=== PATIENT | male | born 1950 | race Caucasian/White ===

== ENCOUNTER 2017-07-29 20:47 | Emergency (ER) | payer MEDICARE, OTHER ==
[~2017-07-29] VITALS: Ht 172.7 cm; Wt 133.8 kg
--- NOTE | ~2017-07-29 | CR21 ---
[facility] A Service of [facility] & [facility] RADIOLOGY TEXT RESULTS PATIENT: ELICEO GOMEZ LOCATION: CFTX : 46 UNIT #: [id number] AGE: [address]: BRET ARRIAGA APRN SEX: M ORDER DR: [id number] [facility] [address] [place], [place] [address] [id number] MR#: [id number] Acc #: [id number] NAME: ELICEO GOMEZ : 1950 SEX: M STUDY DATE/TIME: 07/29/2017 23:54 UNIT: CFME ROOM: STUDY DESCRIPTION: CR Ankle Min 3 Views Rt Attending Physician: Bret Arriaga Aprn Ordering Physician: Bret Arriaga Aprn Primary Care Physician: Liya Ceja M.D. MEDICAL IMAGING REPORT This report is preliminary unless electronic signature is present EXAM Right ankle 07/29/2017 HISTORY 66-year-old male in the ED complaining of lateral right foot and ankle pain after injury. [place] a pop while walking about 2 days ago. TECHNIQUE Three-view right ankle series. FINDINGS No fracture, dislocation or other acute osseous abnormality is demonstrated. Surgical clips within the soft tissues of the visualized medial lower leg. IMPRESSION Negative left ankle series. No acute osseous abnormality. Dictated by... Denver Rinaldi M.D. THIS IS AN ELECTRONICALLY VERIFIED REPORT Denver Rinaldi M.D. at 07/31/2017 2:44 AM BENJA/mp TD: 07/30/2017 12:29 JOB #: [id number] MEDICAL IMAGING REPORT Page 1 of 1 COPY
--- NOTE | ~2017-07-29 | CR127 ---
[facility] A Service of [facility] & [facility] RADIOLOGY TEXT RESULTS PATIENT: ELICEO GOMEZ LOCATION: CFTX : 46 UNIT #: [id number] AGE: [address]: BRET ARRIAGA APRN SEX: M ORDER DR: [id number] [facility] [address]. [place], [place] [address] [id number] E MR#: [id number] Acc #: [id number] NAME: ELICEO GOMEZ : 1950 SEX: M STUDY DATE/TIME: 07/29/2017 23:56 UNIT: CFIL ROOM: STUDY DESCRIPTION: CR Foot Complete Min 3 View Rt Attending Physician: Bret Arriaga Aprn Ordering Physician: Bret Arriaga Aprn Primary Care Physician: Liya Ceja M.D. MEDICAL IMAGING REPORT This report is preliminary unless electronic signature is present EXAM Right foot . HISTORY 66-year-old male in the ED complaining of lateral right foot and ankle pain after injury. [place] a pop while walking 2 days ago. TECHNIQUE Three-view right foot series. FINDINGS There is an old healed fracture across the proximal shaft of the fifth metatarsal. No acute foot fracture, dislocation or additional osseous lesion is demonstrated. Mild degenerative narrowing of the first MTP joint. IMPRESSION 1. No acute osseous abnormality. 2. Old healed fifth metacarpal fracture. 3. No change since 03/09/17. Dictated by... Denver Rinaldi M.D. THIS IS AN ELECTRONICALLY VERIFIED REPORT Denver Rinaldi M.D. at 07/31/2017 2:44 AM PARISW/arturo TD: 07/30/2017 12:27 JOB #: [id number] MEDICAL IMAGING REPORT Page 1 of 1 COPY
[~2017-07-29 20:47] MED LIST: ALBUTEROL17 GM; ALBUTEROL17 GM INH; AMLODIPINE BES2.5 MG PO; AMOXICILLIN500 M1; ASPIRIN; ASPIRIN81 M1 PO; AZITHROMYCIN250 MG PO; CARDURA; CARVEDILOL12.5 MG PO; CLOPIDOGREL75 MG PO; COREG3.125 MG; COREG3.125 MG PO; DETROL LA; DETROL LA PO; EC-NAPROSYN500 MG; FLEXERIL PO; HYDROCODON-ACE1 EAC9 PO; IBUPROFEN600 MG PO; KLONOPIN1 MG; KLONOPIN1 MG PO; LISINOPRIL10 MG PO; LORTAB 7.51 TAB; NEXIUM; NEXIUM PO; NORCO 7.5-3251 EACH PO; NORVASC PO; OMEPRAZOLE20 M1; PLAVIX PO; PREDNISONE PO; PRILOSEC20 MG PO; RANEXA500 MG PO; ROBITUSSIN A-C S5 ML PO; TOPROL XL; ULTRAM; ZESTRIL2.5 MG PO; ZOCOR PO
== END 2017-07-30 01:15 | disposition home or self-care (01) ==
LOC: CED 20:47 → CFTX 20:47
DX: S93.401A Sprain of unspecified ligament of right ankle, initial encounter (principal); K21.9 Gastro-esophageal reflux disease without esophagitis; I48.91 Unspecified atrial fibrillation; Z88.5 Allergy status to narcotic agent; X58.XXXA Exposure to other specified factors, initial encounter; Y92.009 Unspecified place in unspecified non-institutional (private) residence as the place of occurrence of the external cause; Y93.01 Activity, walking, marching and hiking
CPT/HCPCS: 29540; 73610; 73630; 99283